=== PATIENT | female | born 1940 | race Caucasian/White ===

== ENCOUNTER 2019-07-31 12:38 | Outpatient (CLI) | payer MEDICARE, OTHER | END 2019-07-31 23:59 | disposition home or self-care (01) | LOC: CVU 12:38 | PROVIDERS: ATTEND Internal Medicine Cardiovascular Disease | DX: I08.8 Other rheumatic multiple valve diseases (principal); I65.23 Occlusion and stenosis of bilateral carotid arteries; I49.9 Cardiac arrhythmia, unspecified; R60.0 Localized edema | CPT/HCPCS: 93306; 93880; 93970 ==

== ENCOUNTER 2020-02-28 08:47 | Inpatient (IN) | payer MEDICARE, OTHER ==
[~2020-02-28] VITALS: Ht 167.6 cm; Wt 51.0 kg
[~2020-02-28 08:47] MED LIST: AMLO5TAB10 PO; AMLO5TAB4 PO; ASPI-515 PO; CARB1TAB PO; ESCI5TAB7 PO; FAMO-79 PO; LETR2.5T3 PO; LISI5TAB7 PO; PRAV40TA2 PO; RASA1TAB2 PO
--- NOTE | 2020-02-28 09:03 | NUR ---
THIS PT WAS BIB [facility] FROM AN [facility]ST[facility]AC[facility]. CURRENT GCS 10, RESPONDS APPRORIATELY ONLY TO PAINFUL STIMULI. RESPIRATIONS EVEN AND UNLABORED, SKIN AND MUCOUS MEMBRANES DRY. RA 96%. REPORT GIVEN TO SANDI DONALD.
--- NOTE | 2020-02-28 09:22 | NUR ---
Patient cathed and UA sent. Patient to CT. A&Ox0.
[2020-02-28 09:38] LABS: MICROSCOPIC AUTO
[2020-02-28 10:00] LABS: BASOPHILS # (AUTO) 0.02 x10^3/uL (0-0.1); BASOPHILS % (AUTO) 0 % (0-1); EOSINOPHILS # (AUTO) 0.17 x10^3/uL (0-0.4); EOSINOPHILS % (AUTO) 2 % (1-7); LYMPHOCYTES # (AUTO) 1.26 x10^3/uL (1-3.4); LYMPHOCYTES % (AUTO) 17 % (22-44); MD NO; MEAN CORPUSCULAR HEMOGLOBIN 31.4 pg (27.0-34.8); MEAN CORPUSCULAR HGB CONC 33.5 g/dL (32.4-35.8); MEAN PLATELET VOLUME 8.5 fL (7.4-10.4); MONOCYTES % (AUTO) 7 % (2-9); NEUTROPHILS # (AUTO) 5.63 x10^3/uL (1.8-6.8); NEUTROPHILS % (AUTO) 74 % (42-75); PLATELET COUNT 253 x10^3/uL (130-400); RED BLOOD COUNT 4.82 x10^6/uL (3.82-5.3); RED CELL DISTRIBUTION WIDTH 13.4 % (9.6-15.2)
--- NOTE | 2020-02-28 10:02 | NUR ---
Patient is warm to the touch. Rectal temp = 99.6. Incontinent of urine x 1. Patient cleaned, linens changed, and repositioned for comfort. Patient now asking for a pillow, but remains unable to answer A&O questions. Will continue to monitor.
[2020-02-28 10:06] LABS: ALANINE AMINOTRANSFERASE 11 U/L (12-78); ANION GAP 8 mmol/L (5-15); CALCIUM 9.6 mg/dL (8.5-10.1); CHLORIDE 106 mmol/L (98-107); CREATININE 0.66 mg/dL (0.55-1.02)
[2020-02-28 10:08] LABS: ALKALINE PHOSPHATASE 58 U/L (45-117); BILIRUBIN,TOTAL 1.2 mg/dL (0.2-1.0); TOTAL PROTEIN 7.4 g/dL (6.4-8.2)
[2020-02-28] MEDS ORDERED: NS + 40MEQ KCL 1,000 ML IV SCH (10:30)
[2020-02-28] MEDS ORDERED: POTASSIUM CHLORIDE 20 MEQ TAB.ER.PRT PO ONE (10:30)
[2020-02-28] MEDS ORDERED: NS + 40MEQ KCL 1,000 ML IV ONE (11:03)
--- NOTE | 2020-02-28 11:23 | NUR ---
NS with 40K hung. No other needs at this time.
[2020-02-28] MEDS ORDERED: NS + 20MEQ KCL 1,000 ML IV SCH ×2 (11:34→18:30)
[2020-02-28] MEDS: ENOXAPARIN 40 MG/0.4 ML SQ SCH (12:00)
[2020-02-28] MEDS ORDERED: POTASSIUM CHLORIDE 10% 20 MEQ/15 ML UDC PO ONE (12:00)
--- NOTE | 2020-02-28 12:10 | NUR ---
Report to SANDI Phelps.
[2020-02-28 12:12] LABS: TROPONIN I < 0.015 ng/mL (0.000-0.045)
[2020-02-28 12:46] VITALS: BP 162/97
[2020-02-28 16:06] VITALS: BP 165/91
[2020-02-28 17:48] LABS: TROPONIN I < 0.015 ng/mL (0.000-0.045)
[2020-02-28] MEDS ORDERED: ACETAMINOPHEN 325 MG TABLET PO PRN (18:30)
[2020-02-28 19:50] VITALS: BP 129/80
[2020-02-28] MEDS: PRAVASTATIN 40 MG TABLET PO SCH (20:19)
[2020-02-28] MEDS: ENTACAPONE 200 MG TABLET PO SCH (20:19)
[2020-02-28] MEDS: AMLODIPINE 5 MG TABLET PO SCH (20:19)
[2020-02-28] MEDS: CARBIDOPA/LEVODOPA 25 MG/100 MG TABLET PO SCH (20:19)
[2020-02-29 01:07] VITALS: BP 135/80
[2020-02-29 06:37] LABS: BASOPHILS # (AUTO) 0.03 x10^3/uL (0-0.1); BASOPHILS % (AUTO) 0 % (0-1); EOSINOPHILS % (AUTO) 4 % (1-7); LYMPHOCYTES % (AUTO) 17 % (22-44); MD NO; MEAN CORPUSCULAR VOLUME 93.9 fL (80-100); MEAN PLATELET VOLUME 8.7 fL (7.4-10.4); MONOCYTES # (AUTO) 0.68 x10^3/uL (0.2-0.8); MONOCYTES % (AUTO) 9 % (2-9); NEUTROPHILS # (AUTO) 5.53 x10^3/uL (1.8-6.8); NEUTROPHILS % (AUTO) 71 % (42-75); PLATELET COUNT 227 x10^3/uL (130-400); RED BLOOD COUNT 4.67 x10^6/uL (3.82-5.3); RED CELL DISTRIBUTION WIDTH 13.6 % (9.6-15.2)
[2020-02-29 06:44] LABS: ALBUMIN 2.7 g/dL (3.4-5.0); ANION GAP 7 mmol/L (5-15); CALCIUM 8.9 mg/dL (8.5-10.1); CHLORIDE 111 mmol/L (98-107)
[2020-02-29 06:48] LABS: ALKALINE PHOSPHATASE 58 U/L (45-117); BILIRUBIN,TOTAL 1.2 mg/dL (0.2-1.0); CREATININE 0.51 mg/dL (0.55-1.02); TOTAL PROTEIN 6.7 g/dL (6.4-8.2)
[2020-02-29 06:53] LABS: ALANINE AMINOTRANSFERASE < 6 U/L (12-78)
[2020-02-29 06:54] VITALS: BP 161/85
[2020-02-29] MEDS ORDERED: RASAGILINE MESYLATE 1 MG PO SCH (09:00)
[2020-02-29] MEDS: ESCITALOPRAM 10MG TABLET PO SCH (09:57)
[2020-02-29] MEDS: CARBIDOPA/LEVODOPA 25 MG/100 MG TABLET PO SCH ×3 (09:58→20:22)
[2020-02-29] MEDS: ASPIRIN 81 MG TABLET EC PO SCH (09:58)
[2020-02-29] MEDS: SENNA/DOCUSATE TABLET PO SCH (09:58)
[2020-02-29] MEDS: ENTACAPONE 200 MG TABLET PO SCH ×3 (09:59→20:22)
[2020-02-29] MEDS: LETROZOLE 2.5 MG TABLET PO SCH (11:47)
[2020-02-29] MEDS: ENOXAPARIN 40 MG/0.4 ML SQ SCH ×2 (15:00→17:24)
[2020-02-29 15:23] VITALS: BP 141/67
[2020-02-29 18:59] VITALS: BP 109/67
[2020-02-29] MEDS: PRAVASTATIN 40 MG TABLET PO SCH (20:21)
[2020-02-29] MEDS: AMLODIPINE 5 MG TABLET PO SCH (20:21)
[2020-03-01 00:51] VITALS: BP 123/76
[2020-03-01 07:37] VITALS: BP 161/70
[2020-03-01] MEDS: CARBIDOPA/LEVODOPA 25 MG/100 MG TABLET PO SCH ×3 (08:40→20:43)
[2020-03-01] MEDS: SENNA/DOCUSATE TABLET PO SCH (08:40)
[2020-03-01] MEDS: ESCITALOPRAM 10MG TABLET PO SCH (08:41)
[2020-03-01] MEDS: ASPIRIN 81 MG TABLET EC PO SCH (08:41)
[2020-03-01] MEDS: LETROZOLE 2.5 MG TABLET PO SCH (08:42)
[2020-03-01] MEDS: RASAGILINE MESYLATE 1 MG PO SCH (08:43)
[2020-03-01] MEDS: ENTACAPONE 200 MG TABLET PO SCH ×4 (08:44→20:52)
[2020-03-01 14:00] VITALS: BP 132/88
[2020-03-01] MEDS: ENOXAPARIN 40 MG/0.4 ML SQ SCH (15:00)
[2020-03-01 19:01] VITALS: BP 163/80
[2020-03-01 19:10] VITALS: BP 107/64
[2020-03-01] MEDS: PRAVASTATIN 40 MG TABLET PO SCH (20:40)
[2020-03-01] MEDS: AMLODIPINE 5 MG TABLET PO SCH (20:43)
[2020-03-02 01:53] VITALS: BP 139/79
[2020-03-02] MEDS: LETROZOLE 2.5 MG TABLET PO SCH (09:00)
[2020-03-02] MEDS: RASAGILINE MESYLATE 1 MG PO SCH (09:00)
[2020-03-02 09:18] VITALS: BP 143/74
[2020-03-02] MEDS: ENTACAPONE 200 MG TABLET PO SCH ×3 (09:39→20:30)
[2020-03-02] MEDS: ESCITALOPRAM 10MG TABLET PO SCH (09:40)
[2020-03-02] MEDS: SENNA/DOCUSATE TABLET PO SCH (09:40)
[2020-03-02] MEDS: CARBIDOPA/LEVODOPA 25 MG/100 MG TABLET PO SCH ×3 (09:40→20:30)
[2020-03-02] MEDS: ASPIRIN 81 MG TABLET EC PO SCH (09:40)
[2020-03-02 13:02] VITALS: BP 122/74
[2020-03-02] MEDS: ENOXAPARIN 40 MG/0.4 ML SQ SCH (15:00)
[2020-03-02] MEDS: AMLODIPINE 5 MG TABLET PO SCH (20:30)
[2020-03-02] MEDS: PRAVASTATIN 40 MG TABLET PO SCH (20:30)
[2020-03-03] MEDS: CARBIDOPA/LEVODOPA 25 MG/100 MG TABLET PO SCH ×3 (09:00→21:00)
[2020-03-03] MEDS: RASAGILINE MESYLATE 1 MG PO SCH (09:00)
[2020-03-03] MEDS: ESCITALOPRAM 10MG TABLET PO SCH (09:00)
[2020-03-03] MEDS: ASPIRIN 81 MG TABLET EC PO SCH (09:00)
[2020-03-03] MEDS: LETROZOLE 2.5 MG TABLET PO SCH (09:00)
[2020-03-03] MEDS: SENNA/DOCUSATE TABLET PO SCH (09:00)
[2020-03-03] MEDS: ENTACAPONE 200 MG TABLET PO SCH ×3 (09:00→20:00)
[2020-03-03 09:03] VITALS: BP 143/52
[2020-03-03 13:56] VITALS: BP 159/94
[2020-03-03] MEDS: ENOXAPARIN 40 MG/0.4 ML SQ SCH (14:09)
[2020-03-03] MEDS ORDERED: SODIUM CHLORIDE 0.9%, 500ML IVBOLUS ONE (17:30)
[2020-03-03] MEDS: AMLODIPINE 5 MG TABLET PO SCH (20:00)
[2020-03-03 20:04] VITALS: BP 148/84
[2020-03-03] MEDS: PRAVASTATIN 40 MG TABLET PO SCH (21:00)
[2020-03-04 04:43] VITALS: BP 154/92
[2020-03-04 05:24] LABS: BASOPHILS # (AUTO) 0.04 x10^3/uL (0-0.1); BASOPHILS % (AUTO) 1 % (0-1); EOSINOPHILS # (AUTO) 0.49 x10^3/uL (0-0.4); EOSINOPHILS % (AUTO) 6 % (1-7); LYMPHOCYTES # (AUTO) 1.58 x10^3/uL (1-3.4); LYMPHOCYTES % (AUTO) 20 % (22-44); MD NO; MEAN CORPUSCULAR HGB CONC 33.1 g/dL (32.4-35.8); MEAN CORPUSCULAR VOLUME 93.7 fL (80-100); MEAN PLATELET VOLUME 8.9 fL (7.4-10.4); MONOCYTES % (AUTO) 8 % (2-9); NEUTROPHILS # (AUTO) 5.24 x10^3/uL (1.8-6.8); NEUTROPHILS % (AUTO) 66 % (42-75); PLATELET COUNT 284 x10^3/uL (130-400); RED BLOOD COUNT 4.38 x10^6/uL (3.82-5.3); RED CELL DISTRIBUTION WIDTH 13.3 % (9.6-15.2)
[2020-03-04 05:29] LABS: ANION GAP 5 mmol/L (5-15); CALCIUM 9.1 mg/dL (8.5-10.1); CHLORIDE 113 mmol/L (98-107)
[2020-03-04 05:30] LABS: CREATININE 0.55 mg/dL (0.55-1.02)
[2020-03-04] MEDS: ESCITALOPRAM 10MG TABLET PO SCH (07:33)
[2020-03-04] MEDS: LETROZOLE 2.5 MG TABLET PO SCH (07:33)
[2020-03-04] MEDS: ENTACAPONE 200 MG TABLET PO SCH ×3 (07:33→20:44)
[2020-03-04] MEDS: CARBIDOPA/LEVODOPA 25 MG/100 MG TABLET PO SCH ×3 (07:33→20:44)
[2020-03-04] MEDS: ASPIRIN 81 MG TABLET EC PO SCH (07:33)
[2020-03-04] MEDS: SENNA/DOCUSATE TABLET PO SCH (07:33)
[2020-03-04] MEDS: RASAGILINE MESYLATE 1 MG PO SCH (07:33)
[2020-03-04] MEDS ORDERED: D5%-0.45NACL+KCL 20MEQ 1,000 ML IV SCH (08:00)
[2020-03-04 14:24] VITALS: BP 169/108
[2020-03-04] MEDS: ENOXAPARIN 40 MG/0.4 ML SQ SCH (15:00)
[2020-03-04 15:24] VITALS: BP 152/89
[2020-03-04] MEDS ORDERED: SODIUM CHLORIDE 0.9%, 500ML IVBOLUS ONE (15:30)
[2020-03-04 18:58] VITALS: BP 132/80
[2020-03-04] MEDS: AMLODIPINE 5 MG TABLET PO SCH (20:44)
[2020-03-04] MEDS: PRAVASTATIN 40 MG TABLET PO SCH (20:44)
[2020-03-05 02:52] VITALS: BP 144/86
[2020-03-05 06:20] LABS: ANION GAP 5 mmol/L (5-15); CHLORIDE 113 mmol/L (98-107)
[2020-03-05 06:21] LABS: CREATININE 0.51 mg/dL (0.55-1.02)
[2020-03-05 06:37] VITALS: BP 150/76
[2020-03-05] MEDS: CARBIDOPA/LEVODOPA 25 MG/100 MG TABLET PO SCH ×3 (09:07→20:14)
[2020-03-05] MEDS: ASPIRIN 81 MG TABLET EC PO SCH (09:07)
[2020-03-05] MEDS: SENNA/DOCUSATE TABLET PO SCH (09:07)
[2020-03-05] MEDS: ENTACAPONE 200 MG TABLET PO SCH ×3 (09:08→20:13)
[2020-03-05] MEDS: ESCITALOPRAM 10MG TABLET PO SCH (09:08)
[2020-03-05] MEDS: RASAGILINE MESYLATE 1 MG PO SCH (09:10)
[2020-03-05] MEDS: LETROZOLE 2.5 MG TABLET PO SCH (09:10)
[2020-03-05 14:27] VITALS: BP 140/73
[2020-03-05] MEDS: ENOXAPARIN 40 MG/0.4 ML SQ SCH (15:00)
[2020-03-05] MEDS: D5%-0.45NACL+KCL 20MEQ 1,000 ML IV SCH (17:57)
[2020-03-05 20:00] VITALS: BP 114/71
[2020-03-05] MEDS: PRAVASTATIN 40 MG TABLET PO SCH (20:13)
[2020-03-05] MEDS: AMLODIPINE 5 MG TABLET PO SCH (20:14)
[2020-03-06 02:21] VITALS: BP 129/76
[2020-03-06 08:01] VITALS: BP 147/88
[2020-03-06] MEDS: LETROZOLE 2.5 MG TABLET PO SCH (08:55)
[2020-03-06] MEDS: ESCITALOPRAM 10MG TABLET PO SCH (08:55)
[2020-03-06] MEDS: ASPIRIN 81 MG TABLET EC PO SCH (08:55)
[2020-03-06] MEDS: CARBIDOPA/LEVODOPA 25 MG/100 MG TABLET PO SCH (08:55)
[2020-03-06] MEDS: ENTACAPONE 200 MG TABLET PO SCH (08:55)
[2020-03-06] MEDS: SENNA/DOCUSATE TABLET PO SCH (08:56)
[2020-03-06] MEDS: RASAGILINE MESYLATE 1 MG PO SCH (08:56)
[2020-03-06] MEDS: D5%-0.45NACL+KCL 20MEQ 1,000 ML IV SCH (08:56)
[2020-03-06] MEDS ORDERED: ESCI10TA PO (11:33)
[2020-03-06] MEDS ORDERED: RASAGILINE MESYLATE PO (11:33)
[2020-03-06] MEDS ORDERED: CARB1TAB22 PO (11:33)
[2020-03-06] MEDS ORDERED: ENTA200T PO (11:33)
[2020-03-06] MEDS ORDERED: ASPI81TA45 PO (11:33)
[2020-03-06] MEDS ORDERED: AMLO-150 PO (11:33)
[2020-03-06] MEDS ORDERED: ACET325T26 PO (11:33)
[2020-03-06] MEDS ORDERED: LETR2.5T3 PO (11:33)
[2020-03-06] MEDS ORDERED: SENN-193 PO (11:33)
[2020-03-06] MEDS: ENOXAPARIN 40 MG/0.4 ML SQ SCH (15:00)
== END 2020-03-06 15:25 | disposition hospice, inpatient (51) | DRG 70 ==
LOC: ED 09:59 → EDIP 10:26 → 3N 12:30
PROVIDERS: ADMIT Internal Medicine; ATTEND Hospitalist
PROC: 0T9B70Z Drainage of Bladder with Drainage Device, Via Natural or Artificial Opening (ICD-10-PCS; principal; 2020-02-28)
DX: G93.41 Metabolic encephalopathy (principal); E43 Unspecified severe protein-calorie malnutrition; E87.0 Hyperosmolality and hypernatremia; Z68.1 Body mass index [BMI] 19.9 or less, adult; E87.6 Hypokalemia; Z51.5 Encounter for palliative care; Z66 Do not resuscitate; R62.7 Adult failure to thrive; M48.00 Spinal stenosis, site unspecified; E86.0 Dehydration; F02.80 Dementia in other diseases classified elsewhere, unspecified severity, without behavioral disturbance, psychotic disturbance, mood disturbance, and anxiety; G20 Parkinson's disease; G89.29 Other chronic pain; K21.9 Gastro-esophageal reflux disease without esophagitis; I10 Essential (primary) hypertension; M19.011 Primary osteoarthritis, right shoulder; M81.0 Age-related osteoporosis without current pathological fracture; M50.30 Other cervical disc degeneration, unspecified cervical region; M48.02 Spinal stenosis, cervical region; G31.9 Degenerative disease of nervous system, unspecified; Z85.3 Personal history of malignant neoplasm of breast; F32.9 Major depressive disorder, single episode, unspecified; Z87.891 Personal history of nicotine dependence; Z90.10 Acquired absence of unspecified breast and nipple; Z20.828 Contact with and (suspected) exposure to other viral communicable diseases
CPT/HCPCS: 36415; 70450; 70551; 71045; 80048; 80053; 81001; 82607; 83735; 84484; 85025; 93005; 96365; 96366; G0378; J1650; J3480; J7040